=== PATIENT | male | born 1955 | race Two or more races ===

== ENCOUNTER 2020-04-25 12:16 | Emergency (ER) | payer MEDICARE, SELFPAY ==
[2020-04-25 12:32] VITALS: BP 133/81; PULSE 81; RESP 18; TEMP 37; O2SAT 99
--- NOTE | 2020-04-25 12:49 | ED.GENADULT ---
HPI - General Adult General Chief complaint: Urogenital-Male Stated complaint: possible uti Time Seen by Provider: 04/25/20 12:49 Source: patient Mode of arrival: ambulatory Limitations: no limitations History of Present Illness HPI narrative: 64-year-old male patient presents to the [facility] with complaints of urinary symptoms that started when a couple of days ago. Patient states that he has had some burning with urination but denies any urgency or frequency. Patient also states he has had some white penile discharge. Patient states he is also had a little bit of irritation around the head of the penis. Patient states he did have some unprotected sex with an unknown woman about 15 days ago. Patient denies it being a prostitute. Patient states he only has sexual intercourse with women and it was only vaginal. Patient denies any fevers, body aches or chills. Patient denies any abdominal pain, nausea, vomiting or diarrhea. Denies any low back pain. Related Data Allergies Allergy/AdvReac Type Severity Reaction Status Date / Time No Known Allergies Allergy Verified 04/25/20 12:39 Review of Systems Review of Systems: Narrative: CONSTITUTIONAL: Denies fever, chills, or sweats. EYES: Denies visual changes, redness, or discharge. ENT: Denies rhinorrhea, congestion, sore throat, or otalgia. CARDIOVASCULAR: Denies chest pain, palpitations, or edema. RESPIRATORY: Denies cough or dyspnea. GASTROINTESTINAL: Denies abdominal pain, nausea, vomiting, or diarrhea. GENITOURINARY: Positive dysuria, denies hematuria. Positive penile discharge SKIN: Denies rash or itching. MUSCULOSKELETAL: Denies back pain, joint pain, or myalgia. NEUROLOGIC: Denies headache, numbness, or weakness. PSYCHIATRIC: Denies anxiety or depression. [facility] Past Medical History Medical History (Updated 04/25/20 @ 12:53 by JUMA Arora) No active medical problems Comments At the time of my signature I agree with nursing past medical history, surgical, social, and family history. There is no relevant family history pertinent to the presenting complaint. Exam Narrative: Exam Narrative: GENERAL: Well-appearing, well-nourished, and in no acute distress. HEAD: Normocephalic, atraumatic. EYES: PERRLA and EOMI. ENT: Nares clear, no rhinorrhea or epistaxis. Mucous membranes moist. NECK: Supple. No lymphadenopathy CHEST: Clear to auscultation. No respiratory distress. HEART: Regular rate and rhythm. No murmur heard. Normal peripheral pulses. ABDOMEN: Soft, nontender, nondistended, normal active bowel sounds. No CVA tenderness on percussion : Deferred EXTREMITIES: Normal range of motion. No edema. SKIN: Warm, dry, no rash. NEURO: No focal deficits. Alert and oriented x3. Course Vital Signs Vital signs: Vital Signs Temperature 37.0 C 04/25/20 12:32 Pulse Rate 81 04/25/20 12:32 Respiratory Rate 18 04/25/20 12:32 Blood Pressure 133/81 04/25/20 12:32 Pulse Oximetry 99 04/25/20 12:32 Temperature 37.0 C 04/25/20 12:32 Pulse Rate 81 04/25/20 12:32 Respiratory Rate 18 04/25/20 12:32 Blood Pressure 133/81 04/25/20 12:32 Pulse Oximetry 99 04/25/20 12:32 Vital signs reviewed. The patient has been informed that they may have pre-hypertension or Hypertension based on a BP reading in the department. I recommend that the patient call the primary care provider listed on their discharge instructions or a physician of their choice this week to arrange follow up for further evaluation of possible pre-hypertension or Hypertension Medical Decision Making Differential Diagnosis Differential Diagnosis: Differential diagnosis: Uncomplicated lower UTI, uncomplicated UTI, polynephritis, penile trauma,balanoposthitis, phimosis, paraphimosis, testicular torsion, epididymitis, prostatitis, varicocele, spermatocele, hydrocele, hernia. Gonorrhea, chlamydia, Trichomonas, bacterial vaginosis, herpes, HIV, yeast infection, urinary tract infecti
[2020-04-25] MEDS: cefTRIAXone 250 MG VIAL IM (12:55)
[2020-04-25] MEDS: LIDOCAINE HCL 1% LOCAL INJ 20 ML VIAL IM (12:55)
[2020-04-25] MEDS: AZITHROMYCIN 250 MG TABLET 1000 MG PO (12:56)
== END 2020-04-25 13:32 | disposition home or self-care (01) ==
PROVIDERS: Emergency Provider Nurse Practitioner Family
DX: Z20.2 Contact with and (suspected) exposure to infections with a predominantly sexual mode of transmission (principal); N30.00 Acute cystitis without hematuria
CPT/HCPCS: 81003; 87086; 87491; 87591; 87661; 96372; 99213; A9270; G0463; J0696

== ENCOUNTER → 2022-02-26 12:08 | Outpatient (CLI) | payer MEDICARE, SELFPAY ==
--- NOTE | ~2022-02-26 | XR_ITS ---
EXAMINATION: XR shoulder RT min 2V DATE: 02/26/2022 12:50 INDICATION: Right shoulder pain. TECHNIQUE: 4 views of right shoulder were obtained. COMPARISON: None. FINDINGS: Bone alignment is normal. No fracture. There is mild osteoarthritis of glenohumeral joint a nd acromioclavicular joint. IMPRESSION: 1. Mild polyarticular osteoarthritis. Reviewed, dictated and finalized at location A.
--- NOTE | ~2022-02-26 | XR_ITS ---
XR lumbar spine 2-3V DATE: 02/26/2022 12:50 INDICATION: Low back pain TECHNIQUE: AP, lateral, coned lateral lumbosacral views COMPARISON: None FINDINGS: There is osteopenia. There is mild thoracolumbar dextroscoliosis. There is multilevel degenerative disc disease, severe at L5-S1, moderately severe at L2-3 and mild at the remaining lumbar interspaces. No fracture or bone destruction is detected. The included lower thoracic and lumbar pedicles are inta ct. The sacroiliac joints are intact. There is abdominal aortic and common iliac artery calcification, without apparent aneurysm of the valerie cified infrarenal segment. IMPRESSION: Multilevel degenerative disc disease, most pronounced at L2-3 and L5-S1 Reviewed, dictated and finalized at location B. IMPRESSION: Multilevel degenerative disc disease, most pronounced at L2-3 and L 5-S1
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
== END ==
PROVIDERS: PCP Emergency Medicine; Visit Provider Emergency Medicine
DX: M47.817 Spondylosis without myelopathy or radiculopathy, lumbosacral region (principal); M47.813 Spondylosis without myelopathy or radiculopathy, cervicothoracic region; M19.011 Primary osteoarthritis, right shoulder
CPT/HCPCS: 71046; 72050; 72100; 73030

== ENCOUNTER 2023-05-27 13:37 | Outpatient (CLI) | payer MEDICARE, SELFPAY ==
[2023-05-27 14:36] LABS: Alanine Aminotransferase 24 U/L (6-50); Albumin Level 4.1 g/dL (3.5-5.1); Alkaline Phosphatase 71 U/L (38-126); Anion Gap 5 mmol/L (8-16); Aspartate Amino Transferase 29 U/L (17-59); Bilirubin,Total 0.7 mg/dL (0.2-1.3); Blood Urea Nitrogen 12 mg/dL (9-20); Calcium 8.7 mg/dL (8.4-10.2); Carbon Dioxide 26 mmol/L (22-30); Chloride 105 mmol/L (98-107); Cholesterol 118 mg/dL (0-200); Estimated Glomerular Filt Rate > 60; Glucose 164 mg/dL (65-110); HDL Direct 55 mg/dL; Potassium 3.4 mmol/L (3.4-5.0); Sodium 136 mmol/L (137-145); Triglycerides 47 mg/dL (<150)
[2023-05-27 14:45] LABS: Hematocrit 45.5 % (42.0-52.0); Hemoglobin 15.5 g/dL (14.0-18.0); Mean Corpuscular HGB Conc 34.1 g/dl (32-36); Mean Corpuscular Hemoglobin 33.3 pg (26-34); Mean Corpuscular Volume 97.8 fl (80-100); Mean Platelet Volume 11.2 fl (7.4-10.4); Platelet Count Result 236 k/mm3 (150-375); Red Blood Count 4.65 M/mm3 (4.6-6.20); Red Cell Distribution Width 13.5 % (11.5-14.5); White Blood Count 4.9 K/mm3 (4.5-10.0)
[2023-05-27 14:47] LABS: LDL Cholesterol Direct 55 mg/dL
[2023-05-27 14:52] LABS: MALB Creatinine Ratio 8.2 mg/g (0-30); Microalbumin Urine Random 11.9 mg/L (0-16.7)
[2023-05-27 14:57] LABS: Free T4 Free Thyroxine 0.97 ng/mL (0.78-2.19)
[2023-05-27 15:07] LABS: Prostate Specific Antigen 1.1 ng/mL (< OR = 4.0); Thyroid Stimulating Hormone 0.472 uIU/mL (0.465-4.680)
== END 2023-05-27 13:38 | disposition home or self-care (01) ==
PROVIDERS: PCP Emergency Medicine; Visit Provider Emergency Medicine
DX: M54.50 Low back pain, unspecified (principal); R32 Unspecified urinary incontinence; F98.8 Other specified behavioral and emotional disorders with onset usually occurring in childhood and adolescence; M25.511 Pain in right shoulder; R45.4 Irritability and anger; Z12.5 Encounter for screening for malignant neoplasm of prostate; R71.8 Other abnormality of red blood cells; F10.20 Alcohol dependence, uncomplicated
CPT/HCPCS: 36415; 80053; 80061; 82043; 84153; 84439; 84443; 85027; G0103

== ENCOUNTER 2023-05-31 15:06 | Outpatient (CLI) | payer MEDICARE, SELFPAY ==
--- NOTE | ~2023-05-31 | CT_ITS ---
CT Scan of the Chest without Contrast: Clinical Indication: Lung cancer screening, personal history of nicotine dependence Technique: Contiguous sections were acquired throughout the chest without intravenous contrast. Dose reduction technique was used on this scan by utilizing automated exposure control and iterative recon struction technique. The dose-length product (DLP) was 78.32 mGy-cm. Findings: There is no evidence of any significant mediastinal, hilar or axillary lymphadenopathy. The mediastin al soft tissues appear normal. There is no evidence of pleural or pericardial effusion. Scattered calcified granulomas are present. No noncalcified nodule seen. Images through the upper abdomen reveal calcified gallstones. Impression: Lung RADS 2: Benign appearance. 12 month follow-up screening CT advised. Reviewed, dictated and finalized at [facility]. ET TESTER Impression: Lung RADS 2: Benign appearance. 12 month follow-up screening CT advised.
== END 2023-05-31 15:07 | disposition home or self-care (01) ==
PROVIDERS: PCP Emergency Medicine; Visit Provider Emergency Medicine
DX: Z12.2 Encounter for screening for malignant neoplasm of respiratory organs (principal); Z87.891 Personal history of nicotine dependence
CPT/HCPCS: 71271

== ENCOUNTER 2024-06-01 15:53 | Emergency (ER) | payer MEDICARE, SELFPAY ==
[2024-06-01 16:06] VITALS: BP 133/82; PULSE 72; RESP 20; TEMP 37.3; O2SAT 99
[2024-06-01 16:11] VITALS: BP 133/82; PULSE 72; RESP 20; TEMP 37.3; O2SAT 99
[2024-06-01 16:26] LABS: EDUAAPPEAR Cloudy; EDUABILI Negative (Negative); EDUABLOOD Negative (Negative); EDUACOLOR1 Yellow; EDUAGLUCOSE Negative (Negative); EDUAKETONE Negative (Negative); EDUALEUKO Negative (Negative); EDUANITRATE Negative (Negative); EDUAPH 7.5; EDUAPROTEIN Negative (Negative)
--- NOTE | 2024-06-01 16:28 | ED_ITS ---
HPI - Male Genitourinary General Chief complaint: Urogenital-Male Stated complaint: STD Time Seen by Provider: 06/01/24 16:28 Source: patient Mode of arrival: ambulatory Limitations: no limitations History of Present Illness HPI Narrative: 68 yo M presents with c/o rash to penis for 2 months. Intermittently has irritation and itching. has been appplying coconut oil with no improvement. Started after sexually active with new partner. Concerned for STI. No penile discharge. Denies urinary symptoms. All systems reviewed and negative except as noted above. Related Data Allergies Allergy/AdvReac Type Severity Reaction Status Date / Time No Known Allergies Allergy Verified 04/25/20 12:39 Review of Systems Review of Systems: CONSTITUTIONAL: Denies fever, chills, or sweats. EYES: Denies visual changes, redness, or discharge. ENT: Denies rhinorrhea, congestion, sore throat, or otalgia. CARDIOVASCULAR: Denies chest pain, palpitations, or edema. RESPIRATORY: Denies cough or dyspnea. GASTROINTESTINAL: Denies abdominal pain, nausea, vomiting, or diarrhea. GENITOURINARY: Denies dysuria or hematuria. SKIN: Reports redness, some bumps, intermittent itching and irritation to penis MUSCULOSKELETAL: Denies back pain, joint pain, or myalgia. NEUROLOGIC: Denies headache, numbness, or weakness. PSYCHIATRIC: Denies anxiety or depression. All other systems reviewed are negative, except as documented in HPI. [facility], [facility] Past Medical History Medical History (Updated 06/01/24 @ 16:25 by Jazzy Degroot NP) No active medical problems Comments At time of signature, agree with nursing past medical, surgical, social and family history. There is no relevant family history pertinent to the presenting complaint. Exam Narrative: GENERAL: This is a well-nourished, well-developed patient, in no apparent distress. HEAD: normocephalic, atraumatic. EYES: PERRL. Sclera clear/white. Vision is grossly intact. EARS: External ears normal NOSE: External nose normal NECK: Neck supple, non-tender without lymphadenopathy, masses or thyromegaly. CARDIOVASCULAR: Regular rate and rhythm without murmurs, gallops, or rubs. RESPIRATORY: Clear to auscultation. Breath sounds equal bilaterally. No wheezes, rales, or rhonchi. SKIN: warm, Dry, intact, good texture and turgor. pt uncircumcised. pt retracted his foreskin. erythema under foreskin concerning for yeast. no lesions or vesicles. Nontender on palpation. NEURO: awake, alert, and oriented to person, place and time. There were no obvious focal neurologic abnormalities. EXTREMITIES: No joint tenderness, effusion, or edema noted. Course Course Level of Care: Express Care Visit Vital Signs Vital signs: Vital Signs Temperature 37.3 C 06/01/24 16:06 Pulse Rate 72 06/01/24 16:06 Respiratory Rate 20 06/01/24 16:06 Blood Pressure 133/82 06/01/24 16:06 Pulse Oximetry 99 06/01/24 16:06 Oxygen Delivery Room Air 06/01/24 16:06 Temperature 37.3 C 06/01/24 16:11 Pulse Rate 72 06/01/24 16:11 Respiratory Rate 20 06/01/24 16:11 Blood Pressure 133/82 06/01/24 16:11 Pulse Oximetry 99 06/01/24 16:11 Oxygen Delivery Room Air 06/01/24 16:11 reviewed MDM - Male Genitourinary MDM Narrative Medical decision making narrative: Will treat patient with nystatin for possible yeast under [place]. Patient is aware of diagnosis, understands and agrees to treatment plan. Anticipatory guidance given. Patient agrees to follow-up as directed and is aware of reasons to seek care at the emergency department. Portions of this record may have been created with voice recognition software Lab Data Labs: Lab Results 06/01/24 06/01/24 Range/Units 16:13 16:24 POC Urine Color Yellow POC Urine Clarity Cloudy POC Urine pH 7.5 POC Ur Specif Bennett 1.020 POC Urine Protein Negative (Negative) POC Ur Glucose (UA) Negative (Negative) POC Urine Ketones Negative (Negative) POC Urine Blood Negative (Negative) POC Urine Nitrite Negative (Negative) POC Urine Bilirubin Negative (Negative) POC Urine Urobilinogen 1.0 POC U Leukocyte Esteras Negative (Negative) C. trachomatis (PCR) Pending N. gonorrhoeae (PCR) Pending T. vaginalis (PCR) Pending Discharge Plan Discharge Clinical Impression: Yeast dermatitis of penis Patient Disposition: Home, Self-Care Condition: Stable Instructions: Skin Yeast Infection (ED) Additional Instructions: Keep affected area clean and dry. Wash with mild soap and water and pat dry. Apply antifungal cream as prescribed. You were tested for gonorrhea, chlamydia and Trichomonas today. Results will take 48-72 hours. If you have a positive result we will call and prescribed an antibiotic at that time. See your doctor if symptoms not improving. Prescriptions: New nystatin 100,000 unit/gram cream 1 applic topical BID 10 Days Qty: 15 0RF Follow-up/Referrals: Ishaan Coley MD [Primary Care Provider] - Time of Disposition: 16:25
[2024-06-01 19:31] LABS: Trichomonas Vag PCR NOT DETECTED (NOT DETECTE)
[2024-06-01 19:52] LABS: Chlamydia trachomatis NOT DETECTED (NOT DETECTE); Neisseria gonorrhoeae PCR NOT DETECTED (NOT DETECTE)
== END 2024-06-01 16:31 | disposition home or self-care (01) ==
PROVIDERS: Emergency Provider Nurse Practitioner Family; PCP Emergency Medicine
DX: B37.49 Other urogenital candidiasis (principal)
CPT/HCPCS: 81003; 87491; 87591; 87661; 99213; G0463